=== PATIENT | female | born 1985 | race Caucasian/White ===

== ENCOUNTER → 2016-09-15 | Outpatient (CLI) | payer OTHER ==
[~2016-09-15] MED LIST: DESV100T PO
== END | disposition home or self-care (01) ==
LOC: C.PAPS 14:20
PROVIDERS: ATTEND Obstetrics & Gynecology
DX: Z39.2 Encounter for routine postpartum follow-up (principal)

== ENCOUNTER → 2016-12-22 | Outpatient (CLI) | payer OTHER | END | disposition home or self-care (01) | LOC: C.LAB 17:25 | PROVIDERS: ATTEND Obstetrics & Gynecology | DX: Z80.3 Family history of malignant neoplasm of breast (principal) ==